=== PATIENT | male | born 1995 | race Caucasian/White ===

== ENCOUNTER 2017-11-29 04:14 | Emergency (ER) | payer OTHER ==
[2017-11-29] MEDS: IBUPROFEN 600 MG TAB PO (06:00)
[2017-11-29] MEDS: OXYCODONE/ACETAMINOPHEN (5/325) TAB PO (06:40)
[2017-11-29] MEDS: DIPHTH/TET/ACEL PERTUSS (ADULT) 0.5 ML VIAL IM* (06:41)
[2017-11-29] MEDS: NEOMYC/POLYMYX/BACIT 30 GM OINT TOP (06:52)
[2017-11-29] MEDS: DIPHENHYDRAMINE 25 MG CAP PO (07:16)
[2017-11-29] MEDS: morphine 4 MG/ML VIAL IM (07:16)
== END 2017-11-29 08:35 | disposition home or self-care (01) ==
LOC: FTE 04:14
DX: T23.231A Burn of second degree of multiple right fingers (nail), not including thumb, initial encounter (principal); T23.201A Burn of second degree of right hand, unspecified site, initial encounter; X18.XXXA Contact with other hot metals, initial encounter; Y92.89 Other specified places as the place of occurrence of the external cause; Z23 Encounter for immunization
CPT/HCPCS: 16000; 90471; 90715; 96372; 99284-25